=== PATIENT | male | born 1960 | race Caucasian/White ===

== ENCOUNTER 2016-12-25 18:08 | Emergency (ER) | payer SELFPAY ==
[2016-12-25 18:24] VITALS: BP 155/89; PULSE 51; RESP 16; TEMP 98; O2SAT 98; BMI 27.3
--- NOTE | 2016-12-25 18:50 | ED PDOC ---
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 Patient stated after cleaning ear with q-tips, cotton got stock in ear canal. Denies other complains. Time/Duration: Prior to Arrival Context: Home Past Medical History - Provider Review Nursing Documentation Reviewed: Yes - Infectious Disease Hx of Infectious Diseases: None - Cardiac Hx Cardiac Disorders: No - Psychiatric Hx Substance Use: No - Suicidal Assessment Feels Threatened In Home Enviroment: No Family/Social History - Physician Review Nursing Documentation Reviewed: Yes Family/Social History: No Known Family HX Smoking Status: Heavy Smoker > 10 Cigarettes Daily Hx Alcohol Use: No Hx Substance Use: No Allergies/Home Meds Allergies/Adverse Reactions: Allergies No Known Allergies Allergy (Verified 11/17/14 23:51) Home Medications: Home Meds Medication Instructions Recorded Confirmed Amlodipine Besylate [Norvasc] 5 mg PO DAILY 11/17/14 11/17/14 Dutasteride [Avodart] 0.5 mg PO DAILY 11/17/14 11/17/14 Varenicline Tartrate [Chantix 1 mg PO DAILY 11/17/14 11/17/14 Start Month Aly] Review of Systems - Review of Systems Constitutional: Normal. absent: Fatigue, Weight Change, Fevers Eyes: Normal ENT: Other (See HPI) Respiratory: Normal Cardiovascular: Normal Gastrointestinal: Normal Genitourinary Male: Normal Musculoskeletal: Normal Skin: Normal Neurological: Normal Endocrine: Normal Hemo/Lymphatic: Normal Psychiatric: Normal Physical Exam Vital Signs Temp Pulse Resp BP Pulse Ox 12/25/16 18:24 98.0 F 51 L 16 155/89 H 98 12/25/16 18:23 98.0 F 51 L 16 155/89 H 98 Temperature: Afebrile Blood Pressure: Normal Pulse: Regular Respiratory Rate: Normal Appearance: Positive for: Well-Appearing, Non-Toxic, Comfortable Pain Distress: None Mental Status: Positive for: Alert and Oriented X 3 - Systems Exam Head: Present: Atraumatic, Normocephalic Pupils: Present: PERRL Extroacular Muscles: Present: EOMI Conjunctiva: Present: Normal Ears: Present: Other ((+) left ear canal FB was visualized) Mouth: Present: Moist Mucous Membranes Nose (External): Present: Atraumatic Nose (Internal): Present: Normal Inspection Neck: Present: Normal Range of Motion Respiratory/Chest: Present: Clear to Auscultation, Good Air Exchange. No: Respiratory Distress, Accessory Muscle Use, Decreased Breath Sounds, Rales Cardiovascular: Present: Regular Rate and Rhythm, Normal S1, S2. No: Murmurs Medical Decision Making ED Course and Treatment: 12/25/16 18:50 Re-evaluation. Patient feels better. Discussed results and plan with patient who expresses understanding. All questions answered and there is agreement with the plan to discharge home with instructions. Patient stable for discharge. Return if symptoms persist or worsen. Ear canal is normal. TMs are normal Re-evaluation Time: 18:50 Reassessment Condition: Re-examined - Procedure PROCEDURE NOTE (Text): 12/25/16 18:51 PROCEDURE: FOREIGN BODY REMOVAL Performed by the emergency provider Timeout: A timeout to verify the correct patient, procedure, and site was performed immediately prior to the procedure. Indication: Foreign body in left ear belkis Procedure: The cotton ball form q-tip was removed using irrigation and curette. Post-procedure: Patient tolerated the procedure well with no immediate complications. The foreign body was removed. There was no bleeding. Patient tolerated the procedure well with no immediate complications. Disposition/Present on Arrival - Present on Arrival Any Indicators Present on Arrival: No History of DVT/PE: No History of Uncontrolled Diabetes: No Urinary Catheter: No History of Decub. Ulcer: No History Surgical Site Infection Following: None - Disposition Have Diagnosis and Disposition been Completed?: Yes Diagnosis: Otitis externa, Foreign body in left ear Disposition: HOME/ ROUTINE Disposition Time: 18:53 Patient Plan: Discharge Condition: GOOD Discharge Instructions (ExitCare): Otitis Externa (ED) Additional Instructions: Call private doctor for follow up visit in 1-2 days. Never use Q-tips. return to emergency if symptoms worsen. Prescriptions: Neomycin/Polymyxin/Hydrocort [Hydrocortisone/Neomycin/Polymyxin B 1%-0.35%-] 4 drop TID #1 bottle Referrals: Shirin Donald MD [Staff Provider] - Follow up with primary
== END 2016-12-25 19:03 | disposition home or self-care (01) ==
LOC: ED 18:08
DX: T16.2XXA Foreign body in left ear, initial encounter (principal); X58.XXXA Exposure to other specified factors, initial encounter; Y93.E8 Activity, other personal hygiene; Y92.89 Other specified places as the place of occurrence of the external cause; H60.92 Unspecified otitis externa, left ear

== ENCOUNTER 2018-04-11 18:13 | Emergency (ER) | payer SELFPAY ==
[2018-04-11 18:33] VITALS: RESP 18; BMI 26.6
--- NOTE | 2018-04-11 18:57 | ED PDOC ---
Arrival/HPI - General Chief Complaint: High Blood Pressure Time Seen by Provider: 04/11/18 18:52 Historian: Patient - History of Present Illness Associated Symptoms (Text): 57yo male, comes to ER requesting to have his blood pressure checked. Patient states 2 hours after he got home from work, he noted "pressure" in his temples, prompting his visit to the ED to get his BP checked. He states he does not take medication for high blood pressure and denies any headache, chest pain, shortness of breath, abdominal pain or weakness. He has no other complaints. 04/11/18 19:25 Past Medical History - Provider Review Nursing Documentation Reviewed: Yes - Infectious Disease Hx of Infectious Diseases: None - Cardiac Hx Cardiac Disorders: No - Pulmonary Hx Respiratory Disorders: No - Neurological Hx Neurological Disorder: No - HEENT Hx HEENT Disorder: No - Renal Hx Renal Disorder: No - Endocrine/Metabolic Hx Endocrine Disorders: No - Hematological/Oncological Hx Blood Disorders: No - Integumentary Hx Dermatological Disorder: No - Musculoskeletal/Rheumatological Hx Musculoskeletal Disorders: No - Gastrointestinal Hx Gastrointestinal Disorders: No - Genitourinary/Gynecological Hx Genitourinary Disorders: No - Psychiatric Hx Psychophysiologic Disorder: No Hx Substance Use: No - Anesthesia Hx Anesthesia: No - Suicidal Assessment Feels Threatened In Home Enviroment: No Family/Social History - Physician Review Nursing Documentation Reviewed: Yes Family/Social History: No Known Family HX Smoking Status: Heavy Smoker > 10 Cigarettes Daily Hx Alcohol Use: No Hx Substance Use: No Allergies/Home Meds Allergies/Adverse Reactions: Allergies No Known Allergies Allergy (Verified 11/17/14 23:51) Home Medications: Home Meds Medication Instructions Recorded Confirmed Amlodipine Besylate [Norvasc] 5 mg PO DAILY 11/17/14 11/17/14 Dutasteride [Avodart] 0.5 mg PO DAILY 11/17/14 11/17/14 Varenicline Tartrate [Chantix 1 mg PO DAILY 11/17/14 11/17/14 Start Month Aly] Review of Systems - Physician Review All systems were reviewed & negative as marked: Yes - Review of Systems Constitutional: absent: Fatigue Eyes: absent: Vision Changes Respiratory: absent: SOB Cardiovascular: absent: Chest Pain Gastrointestinal: absent: Abdominal Pain Genitourinary Male: absent: Dysuria Musculoskeletal: absent: Back Pain, Neck Pain Skin: absent: Rash Neurological: Other (temporal pressure). absent: Headache, Dizziness Physical Exam Vital Signs Temp Pulse Resp BP Pulse Ox 04/11/18 18:13 98.3 F 51 L 18 167/92 H 97 Temperature: Afebrile Pulse: Regular Respiratory Rate: Normal Appearance: Positive for: Well-Appearing, Non-Toxic, Comfortable Pain Distress: None Mental Status: Positive for: Alert and Oriented X 3 - Systems Exam Head: Present: Atraumatic, Normocephalic Pupils: Present: PERRL Extroacular Muscles: Present: EOMI Conjunctiva: Present: Normal Neck: Present: Normal Range of Motion Respiratory/Chest: Present: Clear to Auscultation, Good Air Exchange. No: Respiratory Distress, Accessory Muscle Use Cardiovascular: Present: Regular Rate and Rhythm, Normal S1, S2. No: Murmurs Abdomen: No: Tenderness, Distention, Peritoneal Signs Upper Extremity: Present: Normal Inspection. No: Cyanosis, Edema Lower Extremity: Present: Normal Inspection. No: Edema Neurological: Present: GCS=15, CN II-XII Intact, Speech Normal Skin: Present: Warm, Dry, Normal Color. No: Rashes Psychiatric: Present: Alert, Oriented x 3, Normal Insight, Normal Concentration Medical Decision Making ED Course and Treatment: Impression: 57yo male, requesting blood pressure eval Plan: -- Patient declines any medication for his blood pressure or head discomfort. -- EKG -- Reassess and disposition Progress Notes: Patient advised on importance of smoking cessation; patient informed on heart healthy diet as well. Discussed with patient regarding need to follow up with a PMD for monitoring his blood pressure. 04/11/18 19:05 EKG shows sinus bradycardia with no ST changes - Scribe Statement The provider has reviewed the documentation as recorded by the Maria Del Carmen Diego Provider Scribe Attestation: All medical record entries made by the Maria Del Carmen were at my direction and personally dictated by me. I have reviewed the chart and agree that the record accurately reflects my personal performance of the history, physical exam, medical decision making, and the department course for this patient. I have also personally directed, reviewed, and agree with the discharge instructions and disposition. Disposition/Present on Arrival - Present on Arrival Any Indicators Present on Arrival: No History of DVT/PE: No History of Uncontrolled Diabetes: No Urinary Catheter: No History of Decub. Ulcer: No History Surgical Site Infection Following: None - Disposition Have Diagnosis and Disposition been Completed?: Yes Diagnosis: Elevated blood pressure reading Disposition: HOME/ ROUTINE Disposition Time: 19:06 Patient Plan: Discharge Patient Problems: Current Active Problems Problem Status Onset Elevated blood pressure reading Acute Condition: GOOD Discharge Instructions (ExitCare): Hypertension (ED) Additional Instructions: Follow-up with PMD within 2 days for further evaluation of elevated blood pressure. Return to ED if condition worsens. Referrals: Bassam Persaud MD [Primary Care Provider] - Follow up with primary Forms: [employer] (Greek)
[2018-04-11 19:39] VITALS: BP 165/91; PULSE 60; TEMP 98.2; O2SAT 99
--- NOTE | 2018-04-12 12:32 | CARD ---
APPROVED REPORT Date of service: 04/11/2018 EKG Measurement Heart [id number] <Conclusion> Marked sinus bradycardia Abnormal ECG
== END 2018-04-11 19:25 | disposition home or self-care (01) ==
LOC: ED 18:13
DX: R03.0 Elevated blood-pressure reading, without diagnosis of hypertension (principal); F17.210 Nicotine dependence, cigarettes, uncomplicated